=== PATIENT | female | born 1950 ===

== ENCOUNTER 2016-09-25 15:30 | Outpatient (RCR) | payer OTHER | END 2016-10-13 | disposition home or self-care (01) | LOC: PTY 15:30 | PROVIDERS: ATTEND Internal Medicine | DX: M25.512 Pain in left shoulder (principal); I10 Essential (primary) hypertension; E11.9 Type 2 diabetes mellitus without complications | CPT/HCPCS: 97110; 97140; 97162; G0283 ==

== ENCOUNTER 2016-10-20 16:30 | Outpatient (RCR) | payer OTHER | END 2016-11-13 | disposition home or self-care (01) | LOC: PTY 16:30 | PROVIDERS: ATTEND Internal Medicine | DX: M25.512 Pain in left shoulder (principal); I10 Essential (primary) hypertension; E11.9 Type 2 diabetes mellitus without complications | CPT/HCPCS: 97110; 97140; G0283 ==

== ENCOUNTER 2017-01-18 09:00 | Outpatient (RCR) | payer OTHER | END 2017-02-12 | disposition home or self-care (01) | LOC: PTY 09:00 | PROVIDERS: ATTEND Internal Medicine | DX: S83.207S Unspecified tear of unspecified meniscus, current injury, left knee, sequela (principal) | CPT/HCPCS: 97035; 97110; 97140; 97161; G0283 ==

== ENCOUNTER 2017-02-18 14:30 | Outpatient (RCR) | payer OTHER | END 2017-03-15 | disposition home or self-care (01) | LOC: PTY 14:30 | PROVIDERS: ATTEND Internal Medicine | DX: S83.207S Unspecified tear of unspecified meniscus, current injury, left knee, sequela (principal) | CPT/HCPCS: 97110; G0283 ==

== ENCOUNTER 2017-07-09 08:30 | Outpatient (RCR) | payer OTHER | END 2017-07-15 | disposition home or self-care (01) | LOC: PTY 08:30 | PROVIDERS: ATTEND Internal Medicine | DX: M25.561 Pain in right knee (principal); M25.562 Pain in left knee | CPT/HCPCS: 97110; 97162; G0283 ==

== ENCOUNTER 2017-10-20 09:30 | Outpatient (RCR) | payer OTHER | END 2017-11-13 | disposition home or self-care (01) | LOC: PTY 09:30 | PROVIDERS: ATTEND Internal Medicine | DX: M25.562 Pain in left knee (principal) | CPT/HCPCS: 97110; 97161; G0283 ==

== ENCOUNTER 2017-11-16 09:07 | Outpatient (RCR) | payer OTHER | END 2017-12-13 | disposition home or self-care (01) | LOC: PTY 09:07 | PROVIDERS: ATTEND Internal Medicine | DX: M25.562 Pain in left knee (principal) | CPT/HCPCS: 97110; G0283 ==